=== PATIENT | male | born 1985 | race Caucasian/White ===

== ENCOUNTER 2016-06-27 10:46 | Emergency (ER) | payer SELFPAY ==
[~2016-06-27] VITALS: Ht 175.3 cm; Wt 75.0 kg
[2016-06-27 10:48] VITALS: Ht 175.3 cm; Wt 75.0 kg
[2016-06-27] MEDS ORDERED: ZOLP10TA PO (20:37)
== END 2016-06-27 11:02 | disposition left against medical advice (07) ==
LOC: E/R 10:46
DX: Z53.21 Procedure and treatment not carried out due to patient leaving prior to being seen by health care provider (principal)

== ENCOUNTER 2016-06-27 16:15 | Emergency (ER) | payer MEDICAID ==
[~2016-06-27] VITALS: Ht 170.2 cm; Wt 52.0 kg
[2016-06-27 16:32] VITALS: Ht 170.2 cm; Wt 52.0 kg
[2016-06-27 18:49] LABS: ADD SCAN DIFF NO
[2016-06-27 18:51] LABS: BASOPHIL # 0.1 10^3/ul (0.0-0.1); BASOPHILS % 0.4 % (0.0-2.0); EOSINOPHILS # 0.1 10^3/ul (0.0-0.5); EOSINOPHILS % 0.5 % (0.0-7.0); HEMATOCRIT 39.4 % (42.0-52.0); HEMOGLOBIN 13.2 g/dl (14.0-18.0); LYMPHOCYTES # 2.5 10^3/ul (0.8-2.9); LYMPHOCYTES % 19.9 % (15.0-51.0); MEAN CORPUSCULAR HEMOGLOBIN 30.1 pg (29.0-33.0); MEAN CORPUSCULAR HGB CONC 33.5 g/dl (32.0-37.0); MEAN CORPUSCULAR VOLUME 89.7 fl (82.0-101.0); MEAN PLATELET VOLUME 9.5 fl (7.4-10.4); MONOCYTE # 1.4 10^3/ul (0.3-0.9); NEUTROPHIL # 8.6 10^3/ul (1.6-7.5); NEUTROPHILS % 67.9 % (39.0-77.0); PLATELET COUNT 286 10^3/UL (140-415); RED BLOOD COUNT 4.39 10^6/ul (4.70-6.10); RED CELL DISTRIBUTION WIDTH 12.2 % (11.5-14.5); WHITE BLOOD COUNT 12.7 10^3/ul (4.8-10.8)
[2016-06-27 18:58] LABS: ADD UMIC NO; URINE BILIRUBIN (Dip) NEGATIVE (NEGATIVE); URINE BLOOD (Dip) NEGATIVE (NEGATIVE); URINE COLOR YELLOW (YELLOW); URINE KETONES (Dip) 15 (NEGATIVE); URINE LEUKOCYTE ESTERASE (Dip) NEGATIVE (NEGATIVE); URINE NITRITE (Dip) NEGATIVE (NEGATIVE); URINE TOTAL PROTEIN (Dip) NEGATIVE (NEGATIVE); URINE UROBILINOGEN (Dip) 0.2 E.U./dL (0.1-1.0)
[2016-06-27 19:15] LABS: ALBUMIN 4.3 g/dl (3.3-4.9)
[2016-06-27 19:16] LABS: CHLORIDE 99 mmol/L (97-110); POTASSIUM 3.3 mmol/L (3.5-5.1); SODIUM 136 mmol/L (135-144)
[2016-06-27 19:18] LABS: ANION GAP 13 (8-16); BILIRUBIN,INDIRECT 0.2 mg/dl (0-1.1); BILIRUBIN,TOTAL 0.2 mg/dl (0.2-1.3); CARBON DIOXIDE 27 mmol/L (21-31); CREATININE 0.73 mg/dl (0.61-1.24)
[2016-06-27 19:19] LABS: ALANINE AMINOTRANSFERASE 29 IU/L (13-69); ALBUMIN/GLOBULIN RATIO 1.86; ALKALINE PHOSPHATASE 54 IU/L (42-121); ASPARTATE AMINO TRANSFERASE 49 IU/L (15-46); BLOOD UREA NITROGEN 17 mg/dl (7-20); CALCIUM 9.1 mg/dl (8.4-10.2); GLUCOSE 197 mg/dl (70-220); TOTAL PROTEIN 6.6 g/dl (6.1-8.1)
[2016-06-27 19:20] LABS: ACETAMINOPHEN < 10.0 ug/ml (10.0-30.0); SALICYLATE < 1.0 mg/dl (5.0-30.0)
[2016-06-27 19:29] LABS: BARBITURATES Negative (NEGATIVE); BENZODIAZEPINES Negative (NEGATIVE)
[2016-06-27 19:31] LABS: OPIATES Negative (NEGATIVE)
[2016-06-27 19:32] LABS: CANNABINOIDS Negative (NEGATIVE)
--- NOTE | 2016-06-27 19:32 | ERD ---
ER Documentation Chief Complaint Date/Time DATE: 06/27/16 TIME: 19:21 Chief Complaint RIGHT 1ST DIGIT LAC FROM PUNCHING HOUSE WINDOW. HPI This 31-year-old male patient brought into emergency department by his significant other. Patient reports intermittently hearing voices. Difficulty sleeping with weight loss, racing thoughts. Patient states that he is having a difficult time sleeping and that even when he is sleeping his mind is still racing. Patient reports poor memory of past events. Was reportedly missing for [address] of [place] in [place]. Patient reportedly was breaking windows. 2 of his car to where his partner works. His partner has been out of town in [place] has just come back today. Patient left his car at his significant other's employment, parked in the [employer] parking. Patient walked home in broken numerous windows in his own house both to get in the house and also broke from inside. Patient denies reason for breaking windows other than he was trying to get in the house. Patient also reports that he called 911 himself and was taken here to [facility]. Patient is in a paper gown. Chart review: Patient was checked again and waiting to be seen for hand laceration. Documentation that while waiting for a room pt decided does not want to be seen and states is ok and laceration is fine. Laceration on RT thumb Patient has a superficial abrasion to anterior thumb. Small scratch dunlap on back. History continues as recent arrest May 29 for erratic behavior, rage, and attempted carjacking. Patient has a court ordered psych eval placed this Sunday. Denies suicidal or homicidal ideation, denies history of psychiatric illness. Denies illegal drug use. ROS All systems reviewed and are negative except as per history of present illness. PMhx/Soc Medical and Surgical Hx: pt denies Medical Hx, pt denies Surgical Hx Hx Alcohol Use: No Hx Substance Use: No Hx Tobacco Use: No Smoking Status: Never smoker Physical Exam Vitals Vital Signs Date Time Temp Pulse Resp B/P Pulse Ox O2 Delivery O2 Flow Rate FiO2 06/27/16 16:32 98.4 101 18 124/74 98 Physical Exam Const: [] Head: Atraumatic Eyes: Normal Conjunctiva ENT: Normal External Ears, Nose and Mouth. Neck: Full range of motion..~ No meningismus. Resp: Clear to auscultation bilaterally Cardio: Regular rate and rhythm, no murmurs Abd: Soft, non tender, non distended. Normal bowel sounds Skin: No petechiae or rashes Back: No midline or flank tenderness Ext: No cyanosis, or edema Neur: Awake and alert Psych: Normal Mood and Affect Result Diagram: 06/27/16184206/27/16 1843 Results 24 hrs Laboratory Tests Test 06/27/16 18:30 06/27/16 18:43 Urine Color YELLOW Urine Clarity CLEAR Urine pH 6.0 Urine Specific [place] >=1.030 Urine Ketones 15 Urine Nitrite NEGATIVE Urine Bilirubin NEGATIVE Urine Urobilinogen 0.2 E.U./dL Urine Leukocyte Esterase NEGATIVE Urine Hemoglobin NEGATIVE Urine Glucose 0.5%% Urine Total Protein NEGATIVE Urine Opiates Screen Negative Urine Barbiturates Negative Urine Amphetamines Screen Negative Urine Benzodiazepines Screen Negative Urine Cocaine Screen Negative Urine Cannabinoids Negative White Blood Count 12.710^3/ul Red Blood Count 4.3910^6/ul Hemoglobin 13.2g/dl Hematocrit 39.4% Mean Corpuscular Volume 89.7fl Mean Corpuscular Hemoglobin 30.1pg Mean Corpuscular Hemoglobin Concent 33.5g/dl Red Cell Distribution Width 12.2% Platelet Count 87124^3/UL Mean Platelet Volume 9.5fl Neutrophils % 67.9% Lymphocytes % 19.9% Monocytes % 11.0% Eosinophils % 0.5% Basophils % 0.4% Nucleated Red Blood Cells % 0.0/100WBC Neutrophils # 8.610^3/ul Lymphocytes # 2.510^3/ul Monocytes # 1.410^3/ul Eosinophils # 0.110^3/ul Basophils # 0.110^3/ul Nucleated Red Blood Cells # 0.010^3/ul Sodium Level 136mmol/L Potassium Level 3.3mmol/L Chloride Level 99mmol/L Carbon Dioxide Level 27mmol/L Anion Gap 13 Blood Urea Nitrogen 17mg/dl Creatinine 0.73mg/dl Glucose Level 197mg/dl Calcium Level 9.1mg/dl Total Bilirubin 0.2mg/dl Direct Bilirubin 0.00mg/dl Indirect Bilirubin 0.2mg/dl Aspartate Amino Transf (AST/SGOT) 49IU/L Alanine Aminotransferase (ALT/SGPT) 29IU/L Alkaline Phosphatase 54IU/L Total Protein 6.6g/dl Albumin 4.3g/dl Globulin 2.30g/dl Albumin/Globulin Ratio 1.86 Salicylates Level < 1.0mg/dl Acetaminophen Level < 10.0ug/ml Ethyl Alcohol Level < 10.0mg/dl Procedures/MDM This 31-year-old male patient brought into emergency department by significant other for erratic behavior, difficulty sleeping, racing mind, weight loss, poor memory. Patient has 24 hours of missing time wandering the streets [place] and [place]. Patient has left his car and his significant other's employment. Has broken windows to get into his own house as well as broken windows inside the house. Patient has documentation of calling 911 on himself in coming to [facility] for hand laceration, patient left without being seen. Patient denies homicidal ideation, suicidal ideation, denies history of previous psychiatric illness. Denies drug use, significant other reports history of high functioning Asperger's unsure if this is diagnosed or suspected. Case discussed with , Social w=Worker called ,: donation worker recommends [facility]. [facility] Dr. Sanchez called, report given: Chat review : Dr. [facility] diagnosis impulse control issues with no formal diagnosis of insomnia, recommend 2 week supply of Ambien 10 mg p.o. nightly for insomnia. May help him with stress reduction while waiting for formal court ordered evaluation, patient has been provided with names and resources for local treatment. Plan discussed with patient's partner. Return to emergency room for any change in psychologic behavior, suicidal or homicidal ideations. Wound care provided. Superficial laceration keep wound clean and dry covered. Observe for signs and symptoms of infection increased redness, discharge or pain. I feel the patient is stable for discharge at this time. I have discussed results, examination findings, the treatment plan with the patient and family present prior to discharge. Indications for emergent reevaluation, side effects of medication were also discussed. All questions were answered. Patient verbalizes understanding and agrees with plan of care. Departure Diagnosis: Primary Impression: Impulse control disorder in adult Additional Impression: Sleep disturbance, unspecified Condition: Good Referrals: [facility] Additional Instructions: Thank you for for coming to [facility] for your care today. Please ask your nurse or provider if you have questions about your care today and do not leave until all your questions have been answered. Please use any medications given as directed and follow-up with your doctor (or the doctor you were referred to) in the next 2-3 days. If you do not have a primary care doctor you [place] [facility] [place] You may also use motrin and tylenol as needed for fever and/or pain unless instructed otherwise by your provider or nurse. Indications for more urgent follow-up have been discussed, but you may return to the Emergency Department at ANY time for any worrisome or worsening symptoms. If you have abdominal pain, please know that no test or exam you received is perfect and you should follow up within 8 hours for continued pain. If you had any imaging studies today, such as an X-Ray or CT Scan, these studies will be reviewed later by a radiologist. You will be called if there are important findings that were not identified today, so make sure the contact information you provided at registration is correct. If you received any narcotic pain control medicine today, such as Vicodin, Morphine or Dilaudid, your coordination and judgment may be affected for a number of hours. Please do not drive or operate heavy machinery, and you may want someone to assist you at home. If you were given a prescription for narcotic medication, be aware that it is very addictive- use sparingly and only if necessary. MELISSA TINEO Jun 27, 2016 19:31
[2016-06-27 19:33] LABS: COCAINE Negative (NEGATIVE)
[2016-06-27 19:35] LABS: ETHANOL < 10.0 mg/dl
--- NOTE | 2016-06-27 19:56 | PSY ---
Date/Time of Note Date/Time of Note DATE: 06/27/16 TIME: 19:49 Psychiatric Subjective Eval Consent Pt consented to telemedicine: Yes Subjective Evaluation Patient location: emergency Chief Complaint: RIGHT 1ST DIGIT LAC FROM PUNCHING HOUSE WINDOW. Reason for consult: Psychiatric evaluation History of present illness Pt has been under a lot of stress lately. He has been dealing with a legal issue related to a "car jacking" (that does not appear to be an intentional car jacking to steal a car). He has a Court ordered evaluation pending. His partner left on a trip this week so patient could spend time alone. Patient was not sleeping, not eating well, losing weight, may have had a dissociate episode and broke windows in his house (to get in the house and, then once in the house, because he was angry). Patient describes an innermost consciousness that sounds almost psychotic in nature. Pt denies si and hi. He has a plan for self care. He feels safe going home and partner feels safe as well. Past psychiatric history None. Partner wonders if he has high functioning autism. He has rages, hard time changing, is creative and tends to obsess Hospitalization: no Family History N.A Medical history N/A Substance Abuse Substance use: No known substance abuse Substance abuse history: No Prior substance abuse treatmen: No Social History Level of education: N.A DPA/Conservatorship: No Occupation/Skilled Nursing: N/A Psychiatric Objective Eval Mental Status Examination: Appearance: Groomed Eye Contact: Good Psychomotor Activity: Normal Behavior: Cooperative Speech: Clear AFFECT: Appropriate Mood: Appropriate/Full Though Process: Linear Thought Content: Normal Homicidal: No On 72 hour hold: No Orientation: x4 Cognition: Alert Insight: Intact Judgement: Mild Laboratory Results Laboratory Tests Test 06/27/16 18:30 06/27/16 18:43 Urine Color YELLOW Urine Clarity CLEAR Urine pH 6.0 Urine Specific [place] >=1.030 Urine Ketones 15 Urine Nitrite NEGATIVE Urine Bilirubin NEGATIVE Urine Urobilinogen 0.2 E.U./dL Urine Leukocyte Esterase NEGATIVE Urine Hemoglobin NEGATIVE Urine Glucose 0.5%% Urine Total Protein NEGATIVE Urine Opiates Screen Negative Urine Barbiturates Negative Urine Amphetamines Screen Negative Urine Benzodiazepines Screen Negative Urine Cocaine Screen Negative Urine Cannabinoids Negative White Blood Count 12.710^3/ul Red Blood Count 4.3910^6/ul Hemoglobin 13.2g/dl Hematocrit 39.4% Mean Corpuscular Volume 89.7fl Mean Corpuscular Hemoglobin 30.1pg Mean Corpuscular Hemoglobin Concent 33.5g/dl Red Cell Distribution Width 12.2% Platelet Count 78890^3/UL Mean Platelet Volume 9.5fl Neutrophils % 67.9% Lymphocytes % 19.9% Monocytes % 11.0% Eosinophils % 0.5% Basophils % 0.4% Nucleated Red Blood Cells % 0.0/100WBC Neutrophils # 8.610^3/ul Lymphocytes # 2.510^3/ul Monocytes # 1.410^3/ul Eosinophils # 0.110^3/ul Basophils # 0.110^3/ul Nucleated Red Blood Cells # 0.010^3/ul Sodium Level 136mmol/L Potassium Level 3.3mmol/L Chloride Level 99mmol/L Carbon Dioxide Level 27mmol/L Anion Gap 13 Blood Urea Nitrogen 17mg/dl Creatinine 0.73mg/dl Glucose Level 197mg/dl Calcium Level 9.1mg/dl Total Bilirubin 0.2mg/dl Direct Bilirubin 0.00mg/dl Indirect Bilirubin 0.2mg/dl Aspartate Amino Transf (AST/SGOT) 49IU/L Alanine Aminotransferase (ALT/SGPT) 29IU/L Alkaline Phosphatase 54IU/L Total Protein 6.6g/dl Albumin 4.3g/dl Globulin 2.30g/dl Albumin/Globulin Ratio 1.86 Salicylates Level < 1.0mg/dl Acetaminophen Level < 10.0ug/ml Ethyl Alcohol Level < 10.0mg/dl Assessment and Plan Assessment/Diagnosis [place] [facility]: Impulse Control Issues - No formal diagnosis. Insomnia. Recommendation/Plan Medication Management Consider two week supply of Ambien 10mg po qhs for insomnia. May help him with stress reduction while waiting for formal Court ordered evaluation Psychotherapy Recommend therapist. Please provide names of resources for local treatment. Pt. Caregiver/Family Education Discussed with partner Follow-up/Disposition Outpatient care. Discharge to self/home. He does not appear to be an acute danger to self or others. He does not appear gravely disabled. IGNACIA CLEMENTS Jun 27, 2016 19:56
[2016-06-27] MEDS ORDERED: ZOLP10TA PO (20:37)
[2016-06-27 20:59] VITALS: BP 126/70; PULSE 106; RESP 18; TEMP 97.9
== END 2016-06-27 20:59 | disposition home or self-care (01) ==
LOC: FTE 16:15
DX: F63.9 Impulse disorder, unspecified (principal); G47.9 Sleep disorder, unspecified; W22.8XXA Striking against or struck by other objects, initial encounter; Y92.9 Unspecified place or not applicable
CPT/HCPCS: 36415; 80053; 80306; 80307; 81003; 85025; Z7502; 99283

== ENCOUNTER 2016-07-19 08:19 | Emergency (ER) | payer MEDICAID ==
[~2016-07-19] VITALS: Ht 177.8 cm; Wt 63.6 kg
[~2016-07-19 08:19] MED LIST: ZOLP10TA PO
[2016-07-19 08:20] VITALS: Ht 177.8 cm; Wt 63.6 kg
[2016-07-19] MEDS ORDERED: DIPHTH/TET/ACEL PERTUSS (ADULT) 0.5 ML VIAL IM* ONE (08:30)
[2016-07-19 08:58] LABS: ADD SCAN DIFF NO
[2016-07-19 09:00] LABS: BASOPHILS % 0.3 % (0.0-2.0); EOSINOPHILS # 0.1 10^3/ul (0.0-0.5); EOSINOPHILS % 0.6 % (0.0-7.0); HEMATOCRIT 40.7 % (42.0-52.0); HEMOGLOBIN 13.3 g/dl (14.0-18.0); LYMPHOCYTES # 1.5 10^3/ul (0.8-2.9); LYMPHOCYTES % 12.1 % (15.0-51.0); MEAN CORPUSCULAR HGB CONC 32.7 g/dl (32.0-37.0); MEAN CORPUSCULAR VOLUME 91.9 fl (82.0-101.0); MEAN PLATELET VOLUME 9.3 fl (7.4-10.4); MONOCYTE # 0.9 10^3/ul (0.3-0.9); NEUTROPHIL # 9.7 10^3/ul (1.6-7.5); NEUTROPHILS % 79.7 % (39.0-77.0); PLATELET COUNT 296 10^3/UL (140-415); RED BLOOD COUNT 4.43 10^6/ul (4.70-6.10); RED CELL DISTRIBUTION WIDTH 12.7 % (11.5-14.5); WHITE BLOOD COUNT 12.2 10^3/ul (4.8-10.8)
[2016-07-19 09:18] LABS: ALBUMIN 4.3 g/dl (3.3-4.9); CHLORIDE 103 mmol/L (97-110)
[2016-07-19 09:19] LABS: SODIUM 142 mmol/L (135-144)
[2016-07-19 09:21] LABS: ALANINE AMINOTRANSFERASE 34 IU/L (13-69); ALBUMIN/GLOBULIN RATIO 1.79; ALKALINE PHOSPHATASE 60 IU/L (42-121); ANION GAP 15 (8-16); ASPARTATE AMINO TRANSFERASE 71 IU/L (15-46); BILIRUBIN,INDIRECT 0.2 mg/dl (0-1.1); BILIRUBIN,TOTAL 0.2 mg/dl (0.2-1.3); BLOOD UREA NITROGEN 10 mg/dl (7-20); CARBON DIOXIDE 28 mmol/L (21-31); CREATININE 0.63 mg/dl (0.61-1.24); TOTAL PROTEIN 6.7 g/dl (6.1-8.1)
[2016-07-19 09:22] LABS: CALCIUM 9.4 mg/dl (8.4-10.2); GLUCOSE 70 mg/dl (70-220); SALICYLATE < 1.0 mg/dl (5.0-30.0)
[2016-07-19 09:23] LABS: ACETAMINOPHEN < 10.0 ug/ml (10.0-30.0)
--- NOTE | 2016-07-19 09:56 | ERA ---
ER Documentation Chief Complaint Date/Time DATE: 07/19/16 TIME: 09:53 Chief Complaint homicidal ideation HPI This is a 31-year-old male who presents to the emergency room after being brought in by Damaso GOTTLIEB on a 5150 hold for evaluation of suicidal and homicidal ideation. A detailed history is unobtainable from the patient however PD states that this patient did scratch himself on his left upper extremity. The patient states that he is feeling depressed, and according to officers he did tell them he wants to hurt himself and other people. He did not specifically state who he would like to her ROS All systems reviewed and are negative except as per history of present illness. Medications Home Meds Discontinued Scripts Zolpidem Tartrate* (Ambien*) 10 Mg Tablet, 10 MG PO QHS Y for INSOMNIA, #15 TAB Prov:NOMAN,MELISSA 06/27/16 Allergies Allergies: Coded Allergies: Unknown: Unable to obtain (Unverified , 07/19/16) PT NOT RESPONSIVE PMhx/Soc Medical and Surgical Hx: pt denies Medical Hx, pt denies Surgical Hx Hx Alcohol Use: No Hx Substance Use: No Hx Tobacco Use: No Smoking Status: Never smoker Physical Exam Vitals Vital Signs Date Time Temp Pulse Resp B/P Pulse Ox O2 Delivery O2 Flow Rate FiO2 07/19/16 08:20 91 20 95/53 98 Physical Exam Const: Disheveled appearance Head: Atraumatic Eyes: Normal Conjunctiva ENT: Normal External Ears, Nose and Mouth. Neck: Full range of motion..~ No meningismus. Resp: Clear to auscultation bilaterally Cardio: Regular rate and rhythm, no murmurs Abd: Soft, non tender, non distended. Normal bowel sounds Skin: Superficial abrasions over left upper extremity, no lacerations no petechiae or rashes Back: No midline or flank tenderness Ext: No cyanosis, or edema Neur: Awake and alert Psych: Normal Mood and Affect Result Diagram: 07/19/1684307/19/16843 Results 24 hrs Laboratory Tests Test 07/19/16 08:44 White Blood Count 12.210^3/ul Red Blood Count 4.4310^6/ul Hemoglobin 13.3g/dl Hematocrit 40.7% Mean Corpuscular Volume 91.9fl Mean Corpuscular Hemoglobin 30.0pg Mean Corpuscular Hemoglobin Concent 32.7g/dl Red Cell Distribution Width 12.7% Platelet Count 25917^3/UL Mean Platelet Volume 9.3fl Neutrophils % 79.7% Lymphocytes % 12.1% Monocytes % 7.0% Eosinophils % 0.6% Basophils % 0.3% Nucleated Red Blood Cells % 0.0/100WBC Neutrophils # 9.710^3/ul Lymphocytes # 1.510^3/ul Monocytes # 0.910^3/ul Eosinophils # 0.110^3/ul Basophils # 0.010^3/ul Nucleated Red Blood Cells # 0.010^3/ul Sodium Level 142mmol/L Potassium Level 4.0mmol/L Chloride Level 103mmol/L Carbon Dioxide Level 28mmol/L Anion Gap 15 Blood Urea Nitrogen 10mg/dl Creatinine 0.63mg/dl Glucose Level 70mg/dl Calcium Level 9.4mg/dl Total Bilirubin 0.2mg/dl Direct Bilirubin 0.00mg/dl Indirect Bilirubin 0.2mg/dl Aspartate Amino Transf (AST/SGOT) 71IU/L Alanine Aminotransferase (ALT/SGPT) 34IU/L Alkaline Phosphatase 60IU/L Total Protein 6.7g/dl Albumin 4.3g/dl Globulin 2.40g/dl Albumin/Globulin Ratio 1.79 Salicylates Level < 1.0mg/dl Acetaminophen Level < 10.0ug/ml Ethyl Alcohol Level 132.0mg/dl Current Medications Medications (Trade) Dose Ordered Sig/Zahida Route PRN Reason Start Time Stop Time Status Last Admin Dose Admin Diphtheria/ Tetanus/Acell Pertussis (Adacel) 0.5 ml ONCE ONCE IM* 07/19/16 08:30 07/19/16 08:31 DC 07/19/16 08:40 Procedures/MDM This 31-year-old male presents to the ER for evaluation of homicidal and suicidal ideation. The patient is refusing to answer questions at this time, he is not specifically stating who he would like to hurt. He does state that he is feeling depressed. Lab work was obtained, and this patient will be transferred to inpatient psychiatric facility when one is available. Patient presents with symptomatology consistent with the decompensation of previously diagnosed psychiatric disease. Based on history, physical exam and appropriate lab tests, I appreciate no evidence of significant life-threatening injury or illness that includes a psychiatric hospitalization. Patient is thus " medically clear" for psychiatric admission. In regards to the psychiatric complaints, this patient has clear evidence of high risk psychiatric symptoms with significant risk for decompensation, thus requiring admission to the hospital for stabilization. Departure Diagnosis: Primary Impression: Suicidal ideation Additional Impressions: Homicidal ideation Alcohol abuse Condition: Stable KIANA BEDOLLA DO July 19, 2016 09:56
[2016-07-19 10:01] LABS: ADD UMIC NO; URINE BILIRUBIN (Dip) NEGATIVE (NEGATIVE); URINE BLOOD (Dip) NEGATIVE (NEGATIVE); URINE COLOR LT. YELLOW (YELLOW); URINE GLUCOSE (Dip) NEGATIVE (NEGATIVE); URINE KETONES (Dip) NEGATIVE (NEGATIVE); URINE LEUKOCYTE ESTERASE (Dip) NEGATIVE (NEGATIVE); URINE NITRITE (Dip) NEGATIVE (NEGATIVE); URINE TOTAL PROTEIN (Dip) NEGATIVE (NEGATIVE); URINE UROBILINOGEN (Dip) 0.2 E.U./dL (0.1-1.0)
[2016-07-19 10:31] LABS: BARBITURATES NEGATIVE (NEGATIVE); BENZODIAZEPINES POSITIVE (NEGATIVE); CANNABINOIDS NEGATIVE (NEGATIVE); COCAINE NEGATIVE (NEGATIVE); OPIATES NEGATIVE (NEGATIVE)
[2016-07-19 15:18] VITALS: BP 127/67; PULSE 97; RESP 16; TEMP 98.7
== END 2016-07-19 16:50 ==
LOC: E/R 08:19
DX: R45.851 Suicidal ideations (principal); F10.10 Alcohol abuse, uncomplicated; Z23 Encounter for immunization
CPT/HCPCS: 36415; 80053; 80306; 80307; 81003; 85025; 90471; 90715; Z7502